=== PATIENT | male | born 1940 | race American Indian/Alaskan Native ===

== ENCOUNTER 2018-08-14 11:15 | Outpatient (CLI) | payer MEDICARE | END 2018-08-14 11:16 | disposition home or self-care (01) | LOC: C.PAT 11:15 | DX: N43.3 Hydrocele, unspecified (principal) ==

== ENCOUNTER 2018-08-25 11:52 | Emergency (ER) | payer MEDICARE ==
[2018-08-25 12:01] VITALS: BMI 40.7
--- NOTE | 2018-08-25 12:58 | C.PDOC ---
History Of Present Illness 78 year old male sent in by Dr. Bergeron for evaluation and admission of new- onset CHF. Patient states that he was supposed to have surgery yesterday for hydrocele, however they were unable to because of his leg swelling. He complains of continued swelling to the bilateral legs for some time now. Otherwise patient denies any SOB, chest pain, dizziness, visual changes, extremity weakness, numbness, or headache. Time Seen by Provider: 08/25/18 12:08 Chief Complaint (Nursing): Lower Extremity Problem/Injury History Per: Patient History/Exam Limitations: no limitations Onset/Duration Of Symptoms: Days Current Symptoms Are (Timing): Still Present Past Medical History Reviewed: Historical Data, Nursing Documentation, Vital Signs Vital Signs: Last Vital Signs Temp 98.5 F 08/25/18 12:01 Pulse 77 08/25/18 12:01 Resp 18 08/25/18 12:01 BP 137/74 08/25/18 12:01 Pulse Ox 96 08/25/18 12:01 - Medical History PMH: COPD, Diabetes, HTN, Hypercholesterolemia Denies: Chronic Kidney Disease Surgical History: Appendectomy, Cholecystectomy - [facility] Procedures ENDOSC POLYPECTOMY OF LG INTEST (11/29/13) ESOPHAGOGASTRODUODENOSCOPY [EGD] W/CLOSED BIOPSY (11/29/13) Family History: States: No Known Family Hx - Social History Hx Tobacco Use: Yes Hx 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 Constitutional: Negative for: Fever, Chills Eyes: Negative for: Vision Change Cardiovascular: Negative for: Chest Pain, Palpitations Respiratory: Negative for: Shortness of Breath, SOB with Excertion Gastrointestinal: Negative for: Nausea, Vomiting Musculoskeletal: Positive for: Other (Bilateral leg swelling). Negative for: Leg Pain Neurological: Negative for: Weakness, Numbness, Headache, Dizziness Physical Exam - Physical Exam Appears: Non-toxic, No Acute Distress, Other (Obese male, appears comfortable) Skin: Warm, Dry Head: Atraumatic, Normacephalic Eye(s): bilateral: Normal Inspection Oral Mucosa: Moist Neck: Normal ROM Chest: Symmetrical, No Tenderness Cardiovascular: Rhythm Regular, No Murmur Respiratory: Normal Breath Sounds, No Rales, No Rhonchi, No Wheezing Gastrointestinal/Abdominal: Soft, No Tenderness, No Distention Extremity: Normal ROM, No Calf Tenderness, No Deformity, Swelling (Bilateral pitting edema of the lower extremities) Pulses: Left Dorsalis Pedis: Normal, Right Dorsalis Pedis: Normal Neurological/Psych: Oriented x3, Normal Speech, Normal Cranial Nerves Gait: Steady ED Course And Treatment - Laboratory Results Result Diagrams: 08/25/18 13:01 08/25/18 13:01 Lab Interpretation: No Acute Changes ECG: Interpreted By Me, Viewed By Me ECG Rhythm: Sinus Rhythm ECG Interpretation: No Acute Changes Rate From EC (nonspecific Twave abnormality) O2 Sat by Pulse Oximetry: 96 (RA) Pulse Ox Interpretation: Normal - Radiology CXR: Interpreted by Me, Viewed By Me, Read By Radiologist CXR Interpretation: Yes: No Acute Disease, Heart Size. No: Infiltrates Medical Decision Making Medical Decision Making: Impression: Leg edema, new CHF Plan: - EKG - Blood work - Urinalysis - Chest x-ray Diagnostics reviewed. [address] Bergeron and discuss findings. requests obs admission and to order echo Disposition - Disposition Disposition: HOSPITALIZED Disposition Time: 14:00 Condition: STABLE - POA Present On Arrival: None - Clinical Impression Clinical Impression: CHF (congestive heart failure) - PA / QUALITATIVE RESEARCHER / Resident Statement MD/DO has reviewed & agrees with the documentation as recorded. - Scribe Statement The provider has reviewed the documentation as recorded by the Scribe Yamilex Zuluaga All medical record entries made by the Scribe were at my direction and personally dictated by me. I have reviewed the chart and agree that the record accurately reflects my personal performance of the history, physical exam, medical decision making, and the department course for this patient. I have also personally directed, reviewed, and agree with the discharge instructions and disposition. Decision To Admit - Pt Status Changed To: Hospital Disposition Of: Observation - . Bed Request Type: Telemetry Admitting Physician: Timoteo Bergeron Patient Diagnosis: CHF (congestive heart failure)
[2018-08-25 13:07] LABS: BASO % 0.2 % (0.0-2.0); EOS # 0.8 K/uL (0.0-0.7); EOS % 16.2 % (0.0-4.0); HEMOGLOBIN 13.5 g/dL (12.0-18.0); LYMPH # 1.1 K/uL (1.0-4.3); LYMPH % 21.6 % (20.0-40.0); MEAN CELL VOLUME 80.9 fL (80.0-94.0); MEAN CORPUSCULAR HEMOGLOBIN 26.8 pg (27.0-31.0); MONO # 0.4 K/uL (0.0-0.8); MONO % 8.7 % (0.0-10.0); NEUT # 2.6 K/uL (1.8-7.0); NEUT % 53.3 % (50.0-75.0); RBC 5.05 Mil/uL (4.40-5.90); RED CELL DISTRIBUTION WIDTH 15.8 % (11.5-14.5); WHITE BLOOD COUNT 4.9 K/uL (4.8-10.8)
[2018-08-25 13:23] LABS: ALB/GLOB RATIO 1.5 (1.0-2.1); ALBUMIN 4.5 g/dL (3.5-5.0); ALT/SGPT 29 U/L (21-72); AST/SGOT 48 U/L (17-59); BLOOD UREA NITROGEN 11 mg/dL (9-20); CALCIUM 9.2 mg/dl (8.6-10.4); GFR NON-AFRICAN AMERICAN 59; HDL CHOLESTEROL 77 mg/dL (30-70)
[2018-08-25 13:26] LABS: INR 1.1; PROTHROMBIN TIME 11.7 SECONDS (9.7-12.2)
[2018-08-25 13:31] LABS: B-TYPE NATRIURETIC PEPTIDE 28.8 pg/mL (0-900)
[2018-08-25 13:33] LABS: LDL CHOLESTEROL 52 mg/dL (0-129)
--- NOTE | 2018-08-25 13:53 | RAD ---
Date of service: 08/25/2018 HISTORY: Shortness of breath COMPARISON: 08/14/2018 TECHNIQUE: Chest PA and lateral FINDINGS: LINES AND TUBES: None. LUNG AND PLEURA: The lungs are well inflated. There is subsegmental atelectasis in the lower lobes. No pleural effusion or pneumothorax. HEART AND MEDIASTINUM: The heart is not enlarged. There are aortic atherosclerotic calcifications present. The hilar and mediastinal contours are within normal limits. SKELETAL STRUCTURES: The bony structures are within normal limits for the patient's age. VISUALIZED UPPER ABDOMEN: Normal. OTHER FINDINGS: None. IMPRESSION: No active pulmonary disease.
[2018-08-25 15:07] VITALS: BP 130/79; PULSE 89; RESP 17; TEMP 98.6; O2SAT 97
--- NOTE | 2018-08-28 14:56 | CARD ---
APPROVED REPORT Date of service: 08/25/2018 EKG Measurement Heart [id number] <Conclusion> Normal sinus rhythm Nonspecific T wave abnormality Abnormal ECG
== END 2018-08-25 14:40 | disposition home or self-care (01) ==
LOC: C.ER 11:52 → UNDOADMOB 14:03 → C.9E 14:03 → C.ER 15:06
DX: I50.9 Heart failure, unspecified (principal)

== ENCOUNTER 2018-09-15 07:37 | Outpatient (CLI) | payer MEDICARE | END 2018-09-15 07:38 | disposition home or self-care (01) | LOC: C.CARD 07:37 | DX: R06.02 Shortness of breath (principal); I50.22 Chronic systolic (congestive) heart failure; I10 Essential (primary) hypertension; E78.2 Mixed hyperlipidemia; R94.31 Abnormal electrocardiogram [ECG] [EKG]; Z01.810 Encounter for preprocedural cardiovascular examination ==